=== PATIENT | male | born 1940 | race Caucasian/White ===

== ENCOUNTER → 2017-11-10 | Outpatient (CLI) | payer MEDICARE, OTHER ==
--- NOTE | 2017-11-11 07:59 | RADIOLOGY REPORT (SQ) ---
EXAM DESCRIPTION: CT LT UPPER EXTREMITY WITHOUT COMPLETED DATE/TIME: 11/10/2017 3:44 pm REASON FOR STUDY: S52.502A UNSPECIFIED FRACTURE OF THE LOWER END OF LEFT RADIUS, INITIAL ENCO S52.50 2A UNSP FRACTURE OF THE LOWER END OF LEFT RADIUS, INIT COMPARISON: None. TECHNIQUE: Axial imaging performed through the left wrist with reformatted coronal and sagittal imag ing windowed for bone and soft tissues. Images saved to PACS. 3D IMAGING: Were 3D images as MIP, SSD, or volume rendering performed at the work station? Yes All CT scanners at this facility use dose modulation, iterative reconstruction, and/or weight based d osing when appropriate to reduce radiation dose to as low as reasonably achievable (ALARA). [facility]: Dose Right [facility]: CareDose [facility]: Dose Right [facility]: Teradose 4D [facility]: Wattage LIMITATIONS: Minimal artifact from aluminum splint RADIATION DOSE: CT Rad equipment meets quality standard of care and radiation dose reduction techniq ues were employed. CTDIvol: 4.6 mGy. DLP: 103 mGy-cm. mGy. FINDINGS: SOFT TISSUES: No obvious swelling or foreign body. BONES: No scaphoid fracture is definitely identified on the coronal reconstructions through the left wrist, series 301. No fracture of the distal radius or ulna is identified. The radiocarpal joint and distal radioulnar joints are grossly normal aside from mild negative ulnar variance. There is slight widening of the dorsal aspect scapholunate joint on series 301, image 17. Intercarpal and carpometacarpal alignment is normal. There is advanced osteoarthritis throughout the radiocarpal and intercarpal joints with joint space n arrowing and subcortical cyst formation. Diffuse chondrocalcinosis is present. There is calcificati ons/ossification of the triangular fibrocartilage. MINERALIZATION: Normal for age OTHER: No other significant finding. IMPRESSION: No fractures are identified. Diffuse osteoarthritis. TECHNICAL DOCUMENTATION: JOB ID: [id number] Quality ID # [id number]: Final reports with documentation of one or more dose reduction techniques (e.g., Au tomated exposure control, adjustment of the mA and/or kV according to patient size, use of iterative reconstruction technique) 2010 [employer]- All Rights Reserved Reading location - IP/workstation name: [facility]
== END ==
LOC: RAD 15:18
PROVIDERS: ATTEND Physician Assistant
DX: S52.502A Unspecified fracture of the lower end of left radius, initial encounter for closed fracture (principal); X58.XXXA Exposure to other specified factors, initial encounter

== ENCOUNTER → 2018-09-10 | Outpatient (CLI) | payer MEDICARE, OTHER ==
[2018-09-10 10:38] LABS: ABSOLUTE EOSINOPHILS # (AUTO) 0.2 10^3/uL (0.0-0.6); ABSOLUTE LYMPHOCYTES (AUTO) 1.3 10^3/uL (0.5-4.7); ABSOLUTE MONOCYTES (AUTO) 0.7 10^3/uL (0.1-1.4); ABSOLUTE NEUT (AUTO) 4.1 10^3/uL (1.7-8.2); BASOPHILS % (AUTO) 0.6 % (0-2); EOSINOPHILS % (AUTO) 3.2 % (0-6); HEMOGLOBIN 14.3 g/dL (13.5-17.0); LYMPHOCYTES % (AUTO) 20.5 % (13-45); MEAN CORPUSCULAR VOLUME 100 fl (80-97); MONOCYTES % (AUTO) 11.1 % (3-13); PLATELET COUNT 369 10^3/uL (150-450); RED CELL DISTRIBUTION WIDTH 14.2 % (11.5-14.0); SEGMENTED NEUTROPHILS % (AUTO) 64.6 % (42-78); TOTAL CELLS COUNTED % (AUTO) 100 %; WHITE BLOOD COUNT 6.4 10^3/uL (4.0-10.5)
[2018-09-10 10:46] LABS: ALANINE AMINOTRANSFERASE 23 U/L (21-72); ALBUMIN 4.8 g/dL (3.5-5.0); ALKALINE PHOSPHATASE 119 U/L (38-126); ANION GAP 11 (5-19); ASPARTATE AMINO TRANSFERASE 27 U/L (17-59); BILIRUBIN,DIRECT 0.4 mg/dL (0.0-0.4); BILIRUBIN,TOTAL 1.3 mg/dL (0.2-1.3); BLOOD UREA NITROGEN 23 mg/dL (7-20); CALCIUM 10.1 mg/dL (8.4-10.2); CARBON DIOXIDE 25 mmol/L (22-30); CHLORIDE 105 mmol/L (98-107); GLUCOSE 104 mg/dL (75-110); POTASSIUM 4.5 mmol/L (3.6-5.0); SODIUM 140.9 mmol/L (137-145); TOTAL PROTEIN 8.3 g/dL (6.3-8.2); URIC ACID 10.6 mg/dL (3.5-8.5)
== END ==
LOC: OD 09:13
PROVIDERS: ATTEND Family Medicine Geriatric Medicine
DX: I10 Essential (primary) hypertension (principal); E78.5 Hyperlipidemia, unspecified; Z79.899 Other long term (current) drug therapy
CPT/HCPCS: 36415; 80053; 84443; 84550; 85025

== ENCOUNTER → 2018-10-15 | Outpatient (CLI) | payer MEDICARE, OTHER ==
[2018-10-15 09:07] LABS: ALANINE AMINOTRANSFERASE 17 U/L (21-72); ANION GAP 14 (5-19); BLOOD UREA NITROGEN 19 mg/dL (7-20); CALCIUM 10.3 mg/dL (8.4-10.2); CARBON DIOXIDE 30 mmol/L (22-30); CHLORIDE 101 mmol/L (98-107); CHOLESTEROL 238.47 mg/dL (0-200); GLUCOSE 101 mg/dL (75-110); POTASSIUM 4.8 mmol/L (3.6-5.0); SODIUM 145.2 mmol/L (137-145); TRIGLYCERIDES 98 mg/dL (<150); URIC ACID 8.5 mg/dL (3.5-8.5)
[2018-10-15 09:18] LABS: DIRECT LDL 134 mg/dL (<100)
== END ==
LOC: OD 07:13
PROVIDERS: ATTEND Family Medicine Geriatric Medicine
DX: N18.3 Chronic kidney disease, stage 3 (moderate) (principal); E53.8 Deficiency of other specified B group vitamins; D75.89 Other specified diseases of blood and blood-forming organs; M10.9 Gout, unspecified; Z79.899 Other long term (current) drug therapy
CPT/HCPCS: 36415; 80048; 80061; 82306; 82607; 82746; 84460; 84550

== ENCOUNTER → 2018-11-26 | Outpatient (CLI) | payer MEDICARE, OTHER ==
[2018-11-26 08:44] LABS: ALANINE AMINOTRANSFERASE 24 U/L (21-72); ANION GAP 13 (5-19); BLOOD UREA NITROGEN 18 mg/dL (7-20); CARBON DIOXIDE 28 mmol/L (22-30); CHLORIDE 104 mmol/L (98-107); CHOLESTEROL 167.83 mg/dL (0-200); GLUCOSE 105 mg/dL (75-110); SODIUM 145.4 mmol/L (137-145); TRIGLYCERIDES 59 mg/dL (<150); URIC ACID 5.2 mg/dL (3.5-8.5)
[2018-11-26 08:56] LABS: DIRECT LDL 74 mg/dL (<100)
== END ==
LOC: OD 07:08
PROVIDERS: ATTEND Family Medicine Geriatric Medicine
DX: M10.9 Gout, unspecified (principal); N18.3 Chronic kidney disease, stage 3 (moderate); E78.5 Hyperlipidemia, unspecified; Z79.899 Other long term (current) drug therapy
CPT/HCPCS: 36415; 80048; 80061; 84460; 84550

== ENCOUNTER → 2019-03-23 | Outpatient (CLI) | payer MEDICARE, OTHER ==
[2019-03-23 08:49] LABS: ANION GAP 13 (5-19); BLOOD UREA NITROGEN 16 mg/dL (7-20); CALCIUM 10.2 mg/dL (8.4-10.2); CARBON DIOXIDE 31 mmol/L (22-30); CHLORIDE 102 mmol/L (98-107); CHOLESTEROL 154.68 mg/dL (0-200); GLUCOSE 106 mg/dL (75-110); POTASSIUM 5.3 mmol/L (3.6-5.0); TRIGLYCERIDES 66 mg/dL (<150); URIC ACID 5.1 mg/dL (3.5-8.5)
[2019-03-23 09:04] LABS: DIRECT LDL 72 mg/dL (<100)
== END ==
LOC: OD 07:35
PROVIDERS: ATTEND Family Medicine Geriatric Medicine
DX: E87.5 Hyperkalemia (principal); M10.9 Gout, unspecified; I10 Essential (primary) hypertension; Z79.899 Other long term (current) drug therapy
CPT/HCPCS: 36415; 80048; 80061; 84460; 84550

== ENCOUNTER → 2019-03-26 | Outpatient (CLI) | payer MEDICARE, OTHER | LOC: OD 07:12 | PROVIDERS: ATTEND Family Medicine Geriatric Medicine | DX: E87.5 Hyperkalemia (principal) | CPT/HCPCS: 36415; 84132 ==

== ENCOUNTER → 2019-06-09 | Outpatient (CLI) | payer MEDICARE, OTHER | LOC: OD 07:54 | PROVIDERS: ATTEND Family Medicine Geriatric Medicine | DX: E87.5 Hyperkalemia (principal); Z79.899 Other long term (current) drug therapy | CPT/HCPCS: 36415; 84132 ==

== ENCOUNTER → 2020-02-09 | Outpatient (CLI) | payer MEDICARE, OTHER ==
[2020-02-09 09:01] LABS: ANION GAP 12 (5-19); BLOOD UREA NITROGEN 20 mg/dL (7-20); CARBON DIOXIDE 30 mmol/L (22-30); CHLORIDE 102 mmol/L (98-107); GLUCOSE 110 mg/dL (75-110); POTASSIUM 4.4 mmol/L (3.6-5.0); URIC ACID 5.3 mg/dL (3.5-8.5)
== END ==
LOC: OD 08:03
PROVIDERS: ATTEND Family Medicine Geriatric Medicine
DX: M10.9 Gout, unspecified (principal); I10 Essential (primary) hypertension; Z79.899 Other long term (current) drug therapy
CPT/HCPCS: 36415; 80048; 84550

== ENCOUNTER 2020-06-10 20:58 | Emergency (ER) | payer MEDICARE, OTHER ==
[~2020-06-10 20:58] MED LIST: TENECTEPLASE INJ 50 MG KIT IV ONE
[2020-06-10] MEDS ORDERED: SODIUM BICARBONATE 8.4% INJ 50 MEQ/50 ML DISP.SYRIN ONE (21:04)
--- NOTE | 2020-06-10 22:03 | ER Document Report ---
ED Resuscitation - General Chief Complaint: Cardiac Arrest Stated Complaint: UNRESPONSIVE Primary Care Provider: ALINA BRAND MD [Primary Care Provider] - Follow up as needed TRAVEL OUTSIDE OF THE [place] IN LAST 30 DAYS: No - HPI Notes: Patient is an 80-year-old male who presents in cardiac arrest. Per EMS, they were called out to the house and when they arrived, the patient was ashen oglesby and minimally responsive. He had a cardiac arrest in route. He was intubated by EMS. They performed approximately 30 minutes of ACLS. They state that they did 6 rounds of epi. They did note V. fib on the monitor once and shocked him as well as given him amiodarone. Patient was also given calcium. Patient was still in cardiac arrest upon arrival to the ER with CPR in progress. EMS stated that they had a rhythm strip which showed elevations in the lateral leads. - Related Data Allergies/Adverse Reactions: No Known Allergies Allergy (Unverified 04/07/16 11:24) Past Medical History - General Information source: Relative, Emergency Med Personnel - Social History Smoking Status: Unknown if Ever Smoked Family History: Reviewed & Not Pertinent Review of Systems - Review of Systems -: Yes ROS unobtainable due to patient's medical condition Physical Exam - Vital signs Vitals: Temp Resp 97.2 F 15 06/10/20 22:06 06/10/20 22:06 - General General appearance: Unresponsive In distress: Severe Notes: VITAL SIGNS: Intubated. GENERAL: Cardiac arrest. HEAD: Normal with no signs of head trauma. EYES: Pupils equal and unreactive. NOSE: Normal. NECK: Supple, no JVD. CHEST: Bilateral lung sounds present. CARDIAC: Cardiac arrest. VASCULAR: No Edema. ABDOMEN: Normal and soft. MUSCULOSKELETAL: Extremities without edema. NEUROLOGICAL: Unable to assess. SKIN: Normal appearance with no rashes or lesions. Course - Re-evaluation Re-evalutation: 06/11/20 01:20 We continued CPR in the ER for a significant amount of time. Please see nursing documentation. ACLS protocol was used with epinephrine, calcium, bicarb. Patient remained pulseless with PEA on the monitor. I did use the cardiac ultrasound and did not see any organized cardiac activity. Time of was 9:20 PM. Patient's arrived to the ER. I spent a significant amount of time explaining to her what happened. She states that patient had not been feeling well all day. He finally called her into the room in the evening and told her to call an ambulance and she states that he did not look well. - Vital Signs Vital signs: Temp Pulse Resp BP Pulse Ox 97.2 F 15 06/10/20 22:06 06/10/20 22:06 - Laboratory Results Critical Laboratory Results Reviewed: No Critical Results - Radiology Results Critical Radiology Results Reviewed: No Critical Results Critical Care Note - Critical Care Note Total time excluding time spent on procedures (mins): 40 Comments: Upon my evaluation, this patient had a high probability of imminent or life- threatening deterioration due to cardiac arrest, which required my direct attention, intervention, and personal management. I have personally provided 40 minutes of critical care time including cardiopulmonary resuscitation, ultrasound use, continuous monitoring, and discussion with EMS personnel and family. Discharge - Discharge Clinical Impression: Cardiac arrest Condition: Poor Disposition: Referrals: ALINA BRAND MD [Primary Care Provider] - Follow up as needed
[2020-06-11] MEDS ORDERED: SODIUM BICARBONATE 8.4% INJ 50 MEQ/50 ML DISP.SYRIN IV ONE ×2 (00:15)
[2020-06-11] MEDS ORDERED: ATROPINE SULFATE INJ 1 MG/10 ML DISP.SYRIN IV ONE (00:15)
[2020-06-11] MEDS ORDERED: EPINEPHRINE INJ 1 MG/10 ML DISP.SYRIN IV ONE ×5 (00:15)
[2020-06-11] MEDS ORDERED: TENECTEPLASE INJ 50 MG KIT IV ONE (00:15)
--- OUTSIDE RECORDS SUMMARY | 2020-06-13 10:38 | XMS REPORT ---
:1940 [facility] [address] [place] [id number] Care Team Providers Name Role Phone Wayne Attending Clinician Unavailable Allergies, Adverse Reactions, Alerts This patient has no known allergies or adverse reactions. Medications This patient has no known medications. Problems This patient has no known problems. Procedures Procedure Date / Time Performed Performing Clinician Harleen golden OFFICE/OUTPATIENT VISIT, EST 2019-01-06 11:40:00 OFFICE/OUTPATIENT VISIT, EST 2018-12-31 11:30:00 Results This patient has no known results. Assessments Condition Name Status Diagnosis Date Treating Clinici an Primary osteoarthritis, left wrist Active Primary osteoarthritis, right wrist Active Unilateral primary osteoarthritis, left knee Active Unilateral primary osteoarthritis, right Active knee Unilateral primary osteoarthritis, left knee Active Unspecified internal derangement of left Active knee Pain in left knee Active Gout, unspecified Active Encounters Start End Encounter Admission Attending Care Care Encounter Date/Time Date/Time Type Type Clinicians Facility Department ID 2019-01-06 2019-01-06 Outpatient CARLOS [facility] [address] [id number] 11:40:00 11:40:00 [facility] [id number] \T\ Sports [id number] Medicine NB [id number] 2018-12-31 2018-12-31 [id number] 11:30:00 11:30:00 [facility] [id number] \T\ Sports [id number] Medicine NB [id number] Social History This patient has no known social history. Vital Signs This patient has no known vital signs.
== END 2020-06-11 00:24 | disposition expired ==
LOC: ER 20:58
DX: I46.9 Cardiac arrest, cause unspecified (principal)
CPT/HCPCS: 99285; 92950; J3101; J0461; J0171; J3490